=== PATIENT | female | born 2000 | race African-American/Black ===

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

== ENCOUNTER 2021-04-08 07:32 | Emergency (ER) | payer OTHER ==
[~2021-04-08] VITALS: Ht 152.4 cm; Wt 52.5 kg
[~2021-04-08 07:32] MED LIST changes: +AMOX500C PO
--- NOTE | 2021-04-08 07:37 | PHYS DOC ---
Past Medical History Past Medical History: No Pertinent History Past Surgical History: No Surgical History Smoking Status: Never Smoker Alcohol Use: None Drug Use: None General Adult HPI: HPI: Patient is a 20-year-old female presenting for vaginal itching. Onset was first noticed this morning without any inciting event, trauma or other known exposure. Itching makes better, certain body movements make worse. Denies any pain just itching sensation "on my lips" without discharge. She is sexually active with x1 partner and uses condoms. No history of STDs or pelvic exams in the past. States her mother thinks she might have a yeast infection despite no recent antibiotic use or other concerning ingestion; however, patient's mother was not there and so it was advised that patient come to the ER for evaluation Review of Systems: Review of Systems: Fourteen body systems of review of systems have been reviewed. See HPI for pertinent positives and negative responses, other sanchez all other systems are negative, non-pertinent or non-contributory Heart Score: C/O Chest Pain: No Risk Factors: Risk Factors: DM, Current or recent (<one month) smoker, HTN, HLP, family history of CAD, obesity. Risk Scores: Score 0 - 3: 2.5% MACE over next 6 weeks - Discharge Home Score 4 - 6: 20.3% MACE over next 6 weeks - Admit for Clinical Observation Score 7 - 10: 72.7% MACE over next 6 weeks - Early Invasive Strategies Allergies: Allergies: Allergies Coded Allergies Type Severity Reaction Last Updated Verified No Known Drug Allergies 06/25/14 No Physical Exam: PE: Constitutional: Well developed, well nourished, no acute distress, non-toxic appearance. HENT: Normocephalic, atraumatic, bilateral external ears normal, oropharynx moist, no oral exudates, nose normal. Eyes: PERRLA, EOMI, conjunctiva normal, no discharge. Neck: Normal range of motion, no tenderness, supple, no stridor. Cardiovascular: Heart rate regular, sinus rhythm, no murmurs rubs or gallops Lungs & Thorax: Bilateral breath sounds clear to auscultation Abdomen: Bowel sounds normal, soft, no tenderness, no masses, no pulsatile masses. Nonsurgical abdomen, no peritoneal signs : Deferred per patient request Skin: Warm, dry, no erythema, no rash. Back: No tenderness, no CVA tenderness. Extremities: No tenderness, no cyanosis, no clubbing, ROM intact, no edema. Neurologic: Alert and oriented X 3, grossly normal motor & sensory function, no focal deficits noted. Psychologic: Affect normal, judgement normal, mood normal. Current Patient Data: Labs: Laboratory Tests Test 04/08/21 07:45 04/08/21 07:59 Urine Collection Type Unknown Urine Color Yellow Urine Clarity Clear Urine pH 6.0 Urine Specific [place] 1.025 Urine Protein Negative mg/dL Urine Glucose (UA) Negative mg/dL Urine Ketones (Stick) Trace mg/dL Urine Blood Negative Urine Nitrite Negative Urine Bilirubin Negative Urine Urobilinogen Dipstick 1.0 mg/dL Urine Leukocyte Esterase Moderate Urine RBC 0 /HPF Urine WBC 1-4 /HPF Urine Squamous Epithelial Cells Few /LPF Urine Bacteria Few /HPF Bedside Urine HCG, Qualitative Hcg negative Current Medications Medications (Trade) Dose Ordered Sig/Kaden Route PRN Reason Start Time Stop Time Status Last Admin Dose Admin Fluconazole (Diflucan) 150 mg 1X ONCE PO 04/08/21 09:00 04/08/21 09:01 UNV Metronidazole (Flagyl) 500 mg 1X ONCE PO 04/08/21 09:00 04/08/21 09:01 UNV Nitrofurantoin Macrocrystals (Macrobid) 100 mg 1X ONCE PO 04/08/21 09:00 04/08/21 09:01 UNV Vital Signs: Vital Signs Date Time Temp Pulse Resp B/P (MAP) Pulse Ox O2 Delivery O2 Flow Rate FiO2 04/08/21 07:49 97.7 109 16 143/82 (102) 97 Room Air 97.7 Vital Signs Date Time Temp Pulse Resp B/P (MAP) Pulse Ox O2 Delivery O2 Flow Rate FiO2 04/08/21 07:49 97.7 109 16 143/82 (102) 97 Room Air 97.7 EKG: EKG: [] Radiology/Procedures: Radiology/Procedures: [] Course & Med Decision Making: Course & Med Decision Making ABCs unremarkable. I disclosed entirety of ER findings and discussed most likely diagnosis of UTI, vaginal yeast and bacterial vaginosis. Diflucan given for yeast. Macrobid and Flagyl given for UTI and bacterial vaginosis respectively. I educated patient on all disease processes and needed course of treatment. I stressed need for close outpatient follow-up to review today's ER visit. Strict return precautions were also discussed at length with good understanding by patient. Patient voiced understanding and agreement with the plan. Patient knows to come back for repeat evaluation if concerning signs or symptoms present prior to outpatient follow-up. Hemodynamically stable, ambulatory and well- appearing at time of disposition. Dragon Disclaimer: Dragon Disclaimer: This electronic medical record was generated, in whole or in part, using a voice recognition dictation system. Departure Departure Impression: Primary Impression: UTI (urinary tract infection) Additional Impressions: Bacterial vaginosis Vaginal yeast infection Disposition: HOME / SELF CARE / HOMELESS Condition: STABLE Referrals: CONNER RODNEY MD (PCP) Scripts Nitrofurantoin Monohyd/M-Cryst (MACROBID 100 MG CAPSULE) 100 Mg Capsule 1 CAP PO BID for 5 Days, #9 CAP 0 Refills Prov: YARELI GEORGES DO 04/08/21 Metronidazole (FLAGYL) 500 Mg Tablet 1 TAB PO BID for 7 Days, #13 TAB Prov: YARELI GEORGES DO 04/08/21 YARELI GEORGES DO Apr 08, 2021 07:37
[2021-04-08 07:49] VITALS: BP 143/82
[2021-04-08 08:04] LABS: BILIRUBIN,URINE NEGATIVE (NEG); CLARITY,URINE CLEAR; COLOR,URINE YELLOW; NITRITE,URINE NEGATIVE (NEG); PROTEIN,URINE NEGATIVE (NEG-TRACE)
[2021-04-08 08:26] LABS: BACTERIA,URINE FEW /HPF (0-FEW); RBC,URINE 0 /HPF (0-2)
[2021-04-08] MEDS ORDERED: METR500T PO (09:03)
[2021-04-08] MEDS ORDERED: NITR100C62 PO (09:03)
[2021-04-08] MEDS ORDERED: metroNIDAZOLE 500 MG TABLET PO ONE (09:30)
[2021-04-08] MEDS ORDERED: NITROFURANTOIN MONOHYD/M-CRYST 100 MG CAPSULE. PO ONE (09:30)
[2021-04-08] MEDS ORDERED: FLUCONAZOLE 100 MG TABLET. PO ONE (09:30)
[2021-04-09 16:11] LABS: GC PROBE Negative (Negative)
== END 2021-04-08 09:19 | disposition home or self-care (01) ==
LOC: ER 07:32
DX: N39.0 Urinary tract infection, site not specified (principal); N76.0 Acute vaginitis; B96.89 Other specified bacterial agents as the cause of diseases classified elsewhere; B37.3 Candidiasis of vulva and vagina
CPT/HCPCS: 81001; 81025; 87086; 87491; 87591; 99284; Q0111